=== PATIENT | female | born 1955 | race Caucasian/White ===

== ENCOUNTER 2020-10-04 17:28 | Emergency (ER) | payer BC ==
[2020-10-04] MEDS ORDERED: Labetalol 20 MG/4 ML Syringe IVPUSH ONE ×2 (18:01→18:36)
--- NOTE | 2020-10-04 18:02 | EDM.PDOC ---
ED HPI GENERAL MEDICAL PROBLEM - General Stated Complaint: POST OP ISSUES- CANT TALK Time Seen by Provider: 10/04/20 17:28 Source of Information: Reports: Patient, Family History Limitations: Reports: No Limitations - History of Present Illness INITIAL COMMENTS - FREE TEXT/NARRATIVE: c/o difficulty speaking this AM at [facility], pt has a laser procedure on varicose vein on RLE by Dr Sarah she lay down for a nap at 1p (her last known well) and awake 2h later with difficulty getting out her words and difficulty writing, no other deficits, husbands reports she could express her thoughts clearly and had no memory difficulties, however she had difficulty finding words head CT without contrast neg pt outside the window for thrombolytics d/w Dr Davila, [place] [facility], who recommended ED to ED transfer for brain MRI d/w Dr Lowery at [place] [facility] who accepted pt in transfer pt has had an isolated expressive aphasia that did not improve or get worse while in ED, pt agrees to transfer elevated BP on arrival with SBP 185 which dec'd to 159 after labetalol 20 mg IV, however it then inc'd again to 184/105 at time of transfer and a 2nd bolus of labetalol 20 mg IV ordered along with a labetalol drip Dr Davila wondered whether the language difficulties could be related to the HTN rather than the other way around as it is not clear why pt has a hypertensive urgency, speech however did not improve with lower BP or worsen with higher BP - Related Data Allergies Allergy/AdvReac Type Severity Reaction Status Date / Time lisinopril Allergy Cough Verified 10/04/20 18:11 Penicillins Allergy Other Verified 10/04/20 18:11 Home Meds: Home Meds Aspirin [Halfprin] 81 mg PO DAILY 10/04/20 [History] Dulaglutide [Trulicity] 0.5 ml INJECT FR 10/04/20 [History] Glucosam/Chond/Collagen/Hyalur [Glucosamine Chondroitin] 1 cap PO DAILY 10/04/20 [History] Losartan [Cozaar] 50 mg PO DAILY 10/04/20 [History] atorvaSTATin [Lipitor] 40 mg PO DAILY 10/04/20 [History] glipiZIDE [Glipizide ER] 10 mg PO BID 10/04/20 [History] metFORMIN [Glucophage XR] 500 mg PO BID 10/04/20 [History] ED ROS GENERAL - Review of Systems Review Of Systems: See Below Constitutional: Reports: No Symptoms HEENT: Reports: No Symptoms Respiratory: Reports: No Symptoms Cardiovascular: Reports: No Symptoms Endocrine: Reports: No Symptoms GI/Abdominal: Reports: No Symptoms : Reports: No Symptoms Musculoskeletal: Reports: No Symptoms Skin: Reports: No Symptoms Neurological: Reports: Trouble Speaking, Change in Speech. Denies: Confusion, Dizziness, Headache, Numbness, Paresthesia, Pre-Existing Deficit, Seizure, Syn cope, Tremors, Difficulty Walking, Weakness, Gait Disturbance Psychiatric: Reports: No Symptoms Hematologic/Lymphatic: Reports: No Symptoms Immunologic: Reports: No Symptoms ED EXAM, NEURO - Physical Exam Exam: See Below Exam Limited By: No Limitations General Appearance: Alert, WD/WN, Anxious Eye Exam: Bilateral Eye: EOMI, PERRL Ears: Hearing Grossly Normal Nose: Normal Inspection, Normal Mucosa, No Blood Throat/Mouth: Normal Inspection, Normal Lips, Normal Teeth, Normal Voice, No Airway Compromise Head Exam: Atraumatic, Normocephalic Neck: Normal Inspection, Supple, Non-Tender, Full Range of Motion Respiratory/Chest: No Respiratory Distress, Lungs Clear, Normal Breath Sounds, Chest Non-Tender Cardiovascular: Regular Rate, Rhythm, No Edema, No Gallop, Other (2/6 JESSY at LSB, quiet precordium) GI/Abdominal: Normal Bowel Sounds, Soft, Non-Tender, No Organomegaly Neurological: Alert, Normal Mood/Affect, CN II-XII Intact, No Motor/Sensory Deficits, Oriented x 3, Other (good eye contact, speaks in complete sentences, answers questions appropriately, does work finding for 3-5 seconds, speech understandable, CN 2-12 intact) Back Exam: Normal Inspection. No: CVA Tenderness (R), CVA Tenderness (L) Extremities: Other (RLE wrapped in Christian which was not removed, 1-2+ edema LLE with inc'd adipose tissue) Psychiatric: Anxious Skin Exam: Warm, Intact #1 Interpretation EKG Date: 10/04/20 Time: 17:56 Rhythm: NSR Rate (Beats/Min): 95 Mather: Normal P-Wave: Present QRS: Normal ST-T: Normal QT: Normal Comparison: NA - No Prior EKG Course - Vital Signs Last Recorded V/S: Last Vital Signs Temp 36.8 C 10/04/20 18:13 Pulse 92 10/04/20 18:13 Resp 17 10/04/20 18:13 BP 196/92 H 10/04/20 18:13 Pulse Ox 97 10/04/20 18:13 - Orders/Labs/Meds Orders: Active Orders 24 hr Category Date Time Status EKG Documentation Completion [RC] ASDIRECTED Care 10/04/20 17:40 Ordered Head wo Cont [CT] Stat Exams 10/04/20 17:39 Ordered Labetalol 100 MG in Normal Saline @ 0.5 MG/MIN(200ml) Med 10/04/20 18:45 Ordered Labetalol [Normodyne] 100 mg Sodium Chloride 0.9% [Normal Saline] 80 ml IV TITRATE Sodium Chloride 0.9% [Saline Flush] Med 10/04/20 18:05 Active 10 ml FLUSH ASDIRECTED PRN EKG 12 Lead [EK] Routine Ther 10/04/20 17:40 Ordered Medication Orders Labetalol HCl 100 mg/ Sodium (Chloride) 100 mls @ 30 mls/hr IV TITRATE JONAS; Protocol Last Admin: 10/04/20 19:00 Dose: 0.5 mg/min, 30 mls/hr Documented by: Sodium Chloride (Sodium Chloride 0.9% 10 Ml Syringe) 10 ml FLUSH ASDIRECTED PRN PRN Reason: IV Use Last Admin: 10/04/20 18:05 Dose: 10 ml Documented by: ELAINE Labs: Laboratory Tests 10/04/20 10/04/20 10/04/20 Range/Units 17:45 17:55 17:55 WBC 7.1 (3.0-10.3) x10-3/uL RBC 4.65 (3.60-5.20) x10(6)uL Hgb 14.1 (11.4-15.5) g/dL Hct 42.6 (34.2-48.2) % MCV 91.5 (76.7-100.5) fL MCH 30.4 (23.9-33.9) pg MCHC 33.2 (31.9-34.8) g/dL RDW 13.8 (12.3-16.5) % Plt Count 219 (151-488) x10(3)uL MPV 6.9 L (7.1-12.4) fL Neut % (Auto) 70.3 (30.8-76.2) % Lymph % (Auto) 17.8 L (18.4-52.1) % Benzie % (Auto) 9.3 (4.4-15.7) % Eos % (Auto) 2.0 (0.6-8.1) % Baso % (Auto) 0.6 (0.2-1.5) % Neut # (Auto) 5.0 (1.5-6.3) x10-3/uL Lymph # (Auto) 1.3 (1.0-4.4) x10-3/uL Benzie # (Auto) 0.7 (0.3-1.0) x10-3/uL Eos # (Auto) 0.1 (0.0-0.8) x10-3/uL Baso # (Auto) 0.0 (0.0-0.1) x10-3/uL PT 10.7 (9.0-11.1) sec INR 0.99 L (1.00-1.24) APTT 24.5 (24.4-33.2) SECONDS Sodium (135-145) mmol/L Potassium (3.5-5.3) mmol/L Chloride (100-110) mmol/L Carbon Dioxide (21-32) mmol/L BUN (7-18) mg/dL Creatinine (0.55-1.02) mg/dL Est Cr Clr Drug Dosing Estimated GFR (MDRD) (>60) BUN/Creatinine Ratio (9-20) Glucose (80-116) mg/dL Calcium (8.6-10.2) mg/dL Total Bilirubin (0.1-1.3) mg/dL AST (5-25) IU/L ALT (12-36) U/L Alkaline Phosphatase (56-112) IU/L Troponin I (4.0-60.3) pg/mL Total Protein (6.0-8.0) g/dL Albumin (3.2-4.6) g/dL Globulin g/dL Albumin/Globulin Ratio Urine Color Yellow (YELLOW) Urine Appearance Clear (CLEAR) Urine pH 6.0 (5.0-6.5) Ur Specific Thrall 1.010 (1.010-1.025) Urine Protein Negative (NEGATIVE) mg/dL Urine Glucose (UA) Normal (NORMAL) mg/dL Urine Ketones Negative (NEGATIVE) mg/dL Urine Occult Blood Negative (NEGATIVE) Urine Nitrite Negative (NEGATIVE) Urine Bilirubin Negative (NEGATIVE) Urine Urobilinogen Normal (NEGATIVE) mg/dL Ur Leukocyte Esterase Negative (NEGATIVE) Urine RBC 0-5 (0-5) Urine WBC 0-5 (0-5) Ur Squamous Epith Cells Occasional (NS,R,O) Urine Bacteria Occasional H (NS) 10/04/20 10/04/20 Range/Units 17:55 17:55 WBC (3.0-10.3) x10-3/uL RBC (3.60-5.20) x10(6)uL Hgb (11.4-15.5) g/dL Hct (34.2-48.2) % MCV (76.7-100.5) fL MCH (23.9-33.9) pg MCHC (31.9-34.8) g/dL RDW (12.3-16.5) % Plt Count (151-488) x10(3)uL MPV (7.1-12.4) fL Neut % (Auto) (30.8-76.2) % Lymph % (Auto) (18.4-52.1) % Benzie % (Auto) (4.4-15.7) % Eos % (Auto) (0.6-8.1) % Baso % (Auto) (0.2-1.5) % Neut # (Auto) (1.5-6.3) x10-3/uL Lymph # (Auto) (1.0-4.4) x10-3/uL Benzie # (Auto) (0.3-1.0) x10-3/uL Eos # (Auto) (0.0-0.8) x10-3/uL Baso # (Auto) (0.0-0.1) x10-3/uL PT (9.0-11.1) sec INR (1.00-1.24) APTT (24.4-33.2) SECONDS Sodium 139 (135-145) mmol/L Potassium 3.7 (3.5-5.3) mmol/L Chloride 101 (100-110) mmol/L Carbon Dioxide 26 (21-32) mmol/L BUN 23 H (7-18) mg/dL Creatinine 1.2 H (0.55-1.02) mg/dL Est Cr Clr Drug Dosing TNP Estimated GFR (MDRD) 45 L (>60) BUN/Creatinine Ratio 19.2 (9-20) Glucose 149 H (80-116) mg/dL Calcium 8.5 L (8.6-10.2) mg/dL Total Bilirubin 0.5 (0.1-1.3) mg/dL AST 20 (5-25) IU/L ALT 30 (12-36) U/L Alkaline Phosphatase 70 (56-112) IU/L Troponin I 13.6 (4.0-60.3) pg/mL Total Protein 7.2 (6.0-8.0) g/dL Albumin 3.7 (3.2-4.6) g/dL Globulin 3.5 g/dL Albumin/Globulin Ratio 1.1 Urine Color (YELLOW) Urine Appearance (CLEAR) Urine pH (5.0-6.5) Ur Specific Thrall (1.010-1.025) Urine Protein (NEGATIVE) mg/dL Urine Glucose (UA) (NORMAL) mg/dL Urine Ketones (NEGATIVE) mg/dL Urine Occult Blood (NEGATIVE) Urine Nitrite (NEGATIVE) Urine Bilirubin (NEGATIVE) Urine Urobilinogen (NEGATIVE) mg/dL Ur Leukocyte Esterase (NEGATIVE) Urine RBC (0-5) Urine WBC (0-5) Ur Squamous Epith Cells (NS,R,O) Urine Bacteria (NS) Meds: Medications Generic Name Dose Route Start Last Admin Trade Name Freq PRN Reason Stop Dose Admin Labetalol HCl 100 mg/ Sodium 100 mls @ 30 mls/hr 10/04/20 18:45 10/04/20 19:00 Chloride IV 0.5 mg/min TITRATE JONAS 30 mls/hr Administration Protocol 0.5 MG/MIN Sodium Chloride 10 ml 10/04/20 18:05 10/04/20 18:39 Sodium Chloride 0.9% 10 Ml Syringe FLUSH 10 ml ASDIRECTED PRN Administration IV Use Discontinued Medications Generic Name Dose Route Start Last Admin Trade Name Freq PRN Reason Stop Dose Admin Labetalol HCl 20 mg 10/04/20 18:01 10/04/20 18:10 Labetalol 20 Mg/4 Ml Syringe IVPUSH 10/04/20 18:02 20 mg ONETIME ONE Administration Protocol Labetalol HCl 20 mg 10/04/20 18:36 10/04/20 18:39 Labetalol 20 Mg/4 Ml Syringe IVPUSH 10/04/20 18:37 20 mg ONETIME ONE Administration Protocol - Re-Assessments/Exams Free Text/Narrative Re-Assessment/Exam: 10/04/20 19:24 see HPI for details of MDM pt remains stable, after 2nd labetalol bolus and labetalol drip DBP dec'd from 105 to 82, SBP dec'd from 189 to 155, when it then dec'd to 152, the labetalol drip was dec'd in 1/2 target SBP 160 given hypertensive urgency and need to avoid excessive high or low BPs Departure - Departure Time of Disposition: 18:39 Disposition: DC/Tfer to Acute Hospital 02 Condition: Fair Clinical Impression: Expressive aphasia, Hypertensive urgency - Discharge Information *PRESCRIPTION DRUG MONITORING PROGRAM REVIEWED*: Not Applicable *COPY OF PRESCRIPTION DRUG MONITORING REPORT IN PATIENT GABRIELLA: Not Applicable Referrals: Sylvie Hawkins NP [Primary Care Provider] - Sepsis Event Note (ED) - Focused Exam Vital Signs: Vital Signs Temp Pulse Resp BP Pulse Ox 10/04/20 18:13 36.8 C 92 17 196/92 H 97 - My Orders Last 24 Hours: My Active Orders 10/04/20 17:39 Head wo Cont [CT] Stat 10/04/20 17:40 EKG Documentation Completion [RC] ASDIRECTED EKG 12 Lead [EK] Routine 10/04/20 18:05 Sodium Chloride 0.9% [Saline Flush] 10 ml FLUSH ASDIRECTED PRN 10/04/20 18:45 Labetalol 100 MG in Normal Saline @ 0.5 MG/MIN(200ml) Labetalol [Normodyne] 100 mg Sodium Chloride 0.9% [Normal Saline] 80 ml IV TITRATE - Assessment/Plan Last 24 Hours: My Active Orders 10/04/20 17:39 Head wo Cont [CT] Stat 10/04/20 17:40 EKG Documentation Completion [RC] ASDIRECTED EKG 12 Lead [EK] Routine 10/04/20 18:05 Sodium Chloride 0.9% [Saline Flush] 10 ml FLUSH ASDIRECTED PRN 10/04/20 18:45 Labetalol 100 MG in Normal Saline @ 0.5 MG/MIN(200ml) Labetalol [Normodyne] 100 mg Sodium Chloride 0.9% [Normal Saline] 80 ml IV TITRATE
[2020-10-04] MEDS: Sodium Chloride 0.9% 10 ML Syringe FLUSH PRN ×3 (18:05→18:39)
[2020-10-04] MEDS ORDERED: Labetalol 100 MG in Sodium Chloride 0.9% 80 ML IV SCH (18:45)
== END 2020-10-04 19:42 ==
LOC: FB.ED 17:28
DX: R47.01 Aphasia (principal); I16.0 Hypertensive urgency; Z88.0 Allergy status to penicillin; Z88.8 Allergy status to other drugs, medicaments and biological substances; Z79.82 Long term (current) use of aspirin; Z79.899 Other long term (current) drug therapy
CPT/HCPCS: 36415; 70450; 80053; 81001; 84484; 85025; 85610; 85730; 93005; 99285; J3490

== ENCOUNTER 2021-09-01 16:12 | Emergency (ER) | payer BC ==
[2021-09-01] MEDS ORDERED: LORazepam 2 MG/ML SDV IVPUSH ONE (16:30)
[2021-09-01] MEDS: Sodium Chloride 0.9% 10 ML Syringe FLUSH PRN ×3 (16:47→17:38)
[2021-09-01] MEDS ORDERED: levETIRAcetam 1,000 MG in Sodium Chloride 0.9% 100 ML IV ONE (16:49)
[2021-09-01 16:54] LABS: ESTIMATED GFR 55 mL/min (>60)
[2021-09-01] MEDS ORDERED: Ketorolac 30 MG/ML SDV IVPUSH ONE (17:22)
[2021-09-01] MEDS ORDERED: Acetaminophen 500 MG Tab PO ONE (17:22)
[2021-09-01] MEDS ORDERED: diphenhydrAMINE 50 MG/ML SDV IVPUSH ONE ×2 (18:10→18:23)
[2021-09-01] MEDS ORDERED: Labetalol 20 MG/4 ML Syringe IVPUSH ONE (18:40)
== END 2021-09-01 19:30 | disposition home or self-care (01) ==
LOC: FB.ED 16:12
DX: I10 Essential (primary) hypertension (principal); T50.995A Adverse effect of other drugs, medicaments and biological substances, initial encounter; E78.00 Pure hypercholesterolemia, unspecified; E11.9 Type 2 diabetes mellitus without complications; E66.9 Obesity, unspecified; Z86.73 Personal history of transient ischemic attack (TIA), and cerebral infarction without residual deficits; Z88.0 Allergy status to penicillin; Z79.82 Long term (current) use of aspirin; Z79.899 Other long term (current) drug therapy; Z68.34 Body mass index [BMI] 34.0-34.9, adult
CPT/HCPCS: 36415; 70450; 80048; 81001; 84484; 85027; 96365; 96375; 99283; 99285-25; A9270-GY; J1200; J1885; J1953; J2060; J3490

== ENCOUNTER 2021-10-25 07:37 | Emergency (ER) | payer BC ==
[2021-10-25] MEDS ORDERED: Sodium Chloride 0.9% 1,000 ML IV ONE (08:49)
[2021-10-25] MEDS ORDERED: diphenhydrAMINE 50 MG/ML SDV IVPUSH ONE (08:53)
[2021-10-25 08:59] LABS: ESTIMATED GFR 50 mL/min (>60)
[2021-10-25] MEDS ORDERED: Magnesium Sulfate/Water 50 ML IV ONE (09:00)
[2021-10-25] MEDS ORDERED: LORazepam 2 MG/ML SDV IVPUSH ONE (09:04)
[2021-10-25] MEDS ORDERED: LORazepam 2 MG/ML SDV ONE (09:07)
[2021-10-25] MEDS ORDERED: Morphine 2 MG/ML SYRINGE IVPUSH ONE (09:10)
[2021-10-25] MEDS ORDERED: Gadoteridol 279.3 MG/ML 20 ML SDV IV ONE (10:18)
== END 2021-10-25 12:00 | disposition home or self-care (01) ==
LOC: FB.ED 07:37
DX: G25.3 Myoclonus (principal); E83.42 Hypomagnesemia; E78.00 Pure hypercholesterolemia, unspecified; I10 Essential (primary) hypertension; E11.9 Type 2 diabetes mellitus without complications; E66.9 Obesity, unspecified; Z86.73 Personal history of transient ischemic attack (TIA), and cerebral infarction without residual deficits; Z88.0 Allergy status to penicillin; Z88.8 Allergy status to other drugs, medicaments and biological substances
CPT/HCPCS: 36415; 70544; 70548; 80053; 82550; 83735; 84443; 85025; 85610; 86140; 96374; 96375; 99282; 99284; A9579; J1200; J2060; J2270; J3475; J7030

== ENCOUNTER 2022-09-11 15:57 | Inpatient (IN) | payer BC, MEDICARE ==
[2022-09-11 16:42] LABS: BASE EXCESS VENOUS,POC 0 mmol/L (-2 - 3+); PCO2 VENOUS,POC 63 mmHg (41-51); PH VENOUS,POC 7.27 pH Units (7.32-7.43)
[2022-09-11 16:54] LABS: BLOOD UREA NITROGEN,BUN 42 mg/dL (7-18); BUN/CREATININE RATIO 23.3 (9-20); CARBON DIOXIDE,CO2 30 mmol/L (21-32); CHLORIDE,CL 102 mmol/L (100-110); CREATININE 1.8 mg/dL (0.55-1.02); ESTIMATED GFR 30 mL/min (>60); GLUCOSE RANDOM 143 mg/dL (80-116); POTASSIUM,K 4.5 mmol/L (3.5-5.3); SODIUM,NA 140 mmol/L (135-145)
[2022-09-11] MEDS ORDERED: methylPREDNISolone Sodium Succinate 125 MG/2 ML SDV IVPUSH ONE (16:57)
[2022-09-11] MEDS ORDERED: Albuterol/Ipratropium 3.0-0.5 MG/3 ML Neb Soln NEB ONE ×2 (16:57→18:43)
[2022-09-11 17:00] LABS: A/G RATIO 0.7; ALANINE AMINOTRANSFERASE,ALT 18 U/L (12-36); ALKALINE PHOSPHATASE 70 IU/L (56-112); ASPARTATE AMNIOTRANSFERASE,AST 14 IU/L (5-25); BASOPHILS PERCENT AUTO 0.2 % (0.2-1.5); BILIRUBIN TOTAL 0.5 mg/dL (0.1-1.3); EOSINOPHILS ABSOLUTE AUTO 0.1 x10-3/uL (0.0-0.8); EOSINOPHILS PERCENT AUTO 0.6 % (0.6-8.1); HEMATOCRIT 35.2 % (34.2-48.2); HEMOGLOBIN 11.5 g/dL (11.4-15.5); LYMPHOCYTES ABSOLUTE AUTO 1.2 x10-3/uL (1.0-4.4); LYMPHOCYTES PERCENT AUTO 9.7 % (18.4-52.1); MEAN CORPUSCULAR HEMOGLOBIN 29.5 pg (23.9-33.9); MEAN CORPUSCULAR HGB CONC 32.5 g/dL (31.9-34.8); MEAN CORPUSCULAR VOLUME 90.7 fL (76.7-100.5); MEAN PLATELET VOLUME 7.9 fL (7.1-12.4); MONOCYTES ABSOLUTE AUTO 1.7 x10-3/uL (0.3-1.0); MONOCYTES PERCENT AUTO 13.5 % (4.4-15.7); NEUTROPHILS ABSOLUTE AUTO 9.4 x10-3/uL (1.5-6.3); PLATELET COUNT,PLT 262 x10(3)uL (151-488); PROTEIN TOTAL,TP 7.5 g/dL (6.0-8.0); RED BLOOD CELL COUNT 3.89 x10(6)uL (3.60-5.20); RED CELL DISTRIBUTION WIDTH 14.8 % (12.3-16.5); WHITE BLOOD CELL COUNT,WBC 12.3 x10-3/uL (3.0-10.3)
[2022-09-11 17:04] LABS: D-DIMER QUANTITATIVE 0.76 mg/LFEU (0.0-0.59)
[2022-09-11 17:06] LABS: LACTIC ACID 0.9 mmol/L (0.4-2.0)
[2022-09-11 17:08] LABS: INR 1.03 (1.00-1.24); PROTHROMBIN TIME 10.6 sec (9.0-11.1); PTT,PARTIAL THROMBOPLSTIN TIME 29.2 SECONDS (24.4-33.2)
[2022-09-11 17:10] LABS: TROPONIN I 30.3 pg/mL (4.0-60.3)
[2022-09-11] MEDS: Sodium Chloride 0.9% 1,000 ML IV SCH (18:49)
[2022-09-11] MEDS ORDERED: Sennosides/Docusate Sodium 50-8.6 MG Tab PO PRN (20:17)
[2022-09-11] MEDS ORDERED: Albuterol 0.083% 2.5 MG/3 ML Neb Soln NEB PRN (20:17)
[2022-09-11] MEDS ORDERED: Ondansetron 4 MG/2 ML SDV IV PRN (20:17)
[2022-09-11] MEDS: cefTRIAXone 1 GM Vial IVPUSH SCH (21:39)
[2022-09-11] MEDS: Azithromycin 500 MG in Sodium Chloride 0.9% 250 ML IV SCH (21:48)
[2022-09-11] MEDS: Enoxaparin 40 MG/0.4 ML Syringe SUBCUT SCH (21:48)
[2022-09-11] MEDS: Albuterol/Ipratropium 3.0-0.5 MG/3 ML Neb Soln INH SCH (21:49)
[2022-09-12] MEDS: Albuterol/Ipratropium 3.0-0.5 MG/3 ML Neb Soln INH SCH ×4 (03:11→20:26)
[2022-09-12 06:36] LABS: HEMOGLOBIN 11.7 g/dL (11.4-15.5); MEAN CORPUSCULAR HEMOGLOBIN 30.1 pg (23.9-33.9); MEAN CORPUSCULAR HGB CONC 32.5 g/dL (31.9-34.8); MEAN CORPUSCULAR VOLUME 92.7 fL (76.7-100.5); MEAN PLATELET VOLUME 7.6 fL (7.1-12.4); PLATELET COUNT,PLT 242 x10(3)uL (151-488); RED BLOOD CELL COUNT 3.89 x10(6)uL (3.60-5.20); RED CELL DISTRIBUTION WIDTH 14.7 % (12.3-16.5); WHITE BLOOD CELL COUNT,WBC 10.1 x10-3/uL (3.0-10.3)
[2022-09-12] MEDS: Sodium Chloride 0.9% 1,000 ML IV SCH ×2 (06:41→18:05)
[2022-09-12 06:47] LABS: BAND PERCENT MAN 1 % (0-6); LYMPHOCYTES PERCENT MAN 7 % (13-37); SEG NEUTROPHILS PERCENT MAN 90 % (46-82)
[2022-09-12 06:48] LABS: MONOCYTES PERCENT MAN 2 % (4-12)
[2022-09-12 06:51] LABS: A/G RATIO 0.6; ALANINE AMINOTRANSFERASE,ALT 22 U/L (12-36); ALBUMIN 2.8 g/dL (3.2-4.6); ALKALINE PHOSPHATASE 70 IU/L (56-112); ASPARTATE AMNIOTRANSFERASE,AST 16 IU/L (5-25); BILIRUBIN TOTAL 0.1 mg/dL (0.1-1.3); BLOOD UREA NITROGEN,BUN 51 mg/dL (7-18); BUN/CREATININE RATIO 24.3 (9-20); CALCIUM 8.6 mg/dL (8.6-10.2); CARBON DIOXIDE,CO2 29 mmol/L (21-32); CHLORIDE,CL 104 mmol/L (100-110); EST CRCL DRUG DOSING (CG) 25.86 mL/min; ESTIMATED GFR 25 mL/min (>60); GLUCOSE RANDOM 216 mg/dL (80-116); POTASSIUM,K 5.8 mmol/L (3.5-5.3); PROTEIN TOTAL,TP 7.5 g/dL (6.0-8.0); SODIUM,NA 140 mmol/L (135-145)
[2022-09-12 06:54] LABS: CREATININE 2.1 mg/dL (0.55-1.02)
[2022-09-12] MEDS ORDERED: predniSONE 20 MG Tab PO SCH (08:00)
[2022-09-12 10:07] LABS: ALBUMIN 2.7 g/dL (3.2-4.6); BLOOD UREA NITROGEN,BUN 54 mg/dL (7-18); CALCIUM 8.6 mg/dL (8.6-10.2); CARBON DIOXIDE,CO2 29 mmol/L (21-32); CHLORIDE,CL 104 mmol/L (100-110); EST CRCL DRUG DOSING (CG) 27.16 mL/min; ESTIMATED GFR 27 mL/min (>60); GLUCOSE RANDOM 211 mg/dL (80-116); PHOSPHORUS 4.5 mg/dL (2.6-4.6); POTASSIUM,K 5.1 mmol/L (3.5-5.3); SODIUM,NA 139 mmol/L (135-145)
[2022-09-12] MEDS ORDERED: Polyethylene Glycol 3350 Powder 17 GM Packet PO PRN (10:25)
[2022-09-12] MEDS ORDERED: Cyclobenzaprine 10 MG Tab PO PRN (10:25)
[2022-09-12] MEDS ORDERED: amLODIPine 5 MG Tab PO SCH (10:30)
[2022-09-12] MEDS ORDERED: Sennosides 8.6 MG Tab PO SCH (10:30)
[2022-09-12] MEDS ORDERED: 50% Dextrose in Water 50 ML Syringe IVPUSH PRN (10:33)
[2022-09-12] MEDS ORDERED: Glucagon,Human Recombinant 1 MG Vial IM PRN (10:33)
[2022-09-12] MEDS ORDERED: Insulin Lispro 100 Unit/ML 3 ML KwikPen SUBCUT ONE (11:25)
[2022-09-12] MEDS: atorvaSTATin 40 MG Tab PO SCH (11:26)
[2022-09-12] MEDS: Aspirin 81 MG Tab.EC PO SCH (11:26)
[2022-09-12] MEDS: hydrALAZINE 10 MG Tab PO SCH ×2 (11:27→20:22)
[2022-09-12] MEDS: Carvedilol 25 MG Tab PO SCH ×2 (11:27→20:21)
[2022-09-12] MEDS: levETIRAcetam 500 MG Tab PO SCH ×2 (11:27→20:22)
[2022-09-12] MEDS: Escitalopram 10 MG Tab PO SCH (11:28)
[2022-09-12] MEDS: predniSONE 20 MG Tab PO SCH (11:36)
[2022-09-12] MEDS: Insulin Lispro 100 Unit/ML 3 ML KwikPen SUBCUT SCH ×2 (11:39→16:59)
[2022-09-12] MEDS: glipiZIDE 10 MG Tab.ER PO SCH ×2 (11:43→16:59)
[2022-09-12] MEDS: cefTRIAXone 1 GM Vial IVPUSH SCH (20:31)
[2022-09-12] MEDS: Azithromycin 500 MG in Sodium Chloride 0.9% 250 ML IV SCH (20:36)
[2022-09-12] MEDS: Enoxaparin 40 MG/0.4 ML Syringe SUBCUT SCH (20:47)
[2022-09-12] MEDS ORDERED: Benztropine 1 MG Tab PO SCH (21:00)
[2022-09-13] MEDS: Albuterol/Ipratropium 3.0-0.5 MG/3 ML Neb Soln INH SCH ×4 (03:03→20:27)
[2022-09-13] MEDS: Sodium Chloride 0.9% 1,000 ML IV SCH (05:02)
[2022-09-13 06:46] LABS: BASOPHILS PERCENT AUTO 0.1 % (0.2-1.5); EOSINOPHILS PERCENT AUTO 0.1 % (0.6-8.1); HEMATOCRIT 32.6 % (34.2-48.2); HEMOGLOBIN 10.7 g/dL (11.4-15.5); LYMPHOCYTES ABSOLUTE AUTO 0.9 x10-3/uL (1.0-4.4); LYMPHOCYTES PERCENT AUTO 8.6 % (18.4-52.1); MEAN CORPUSCULAR HEMOGLOBIN 29.9 pg (23.9-33.9); MEAN CORPUSCULAR HGB CONC 32.7 g/dL (31.9-34.8); MEAN CORPUSCULAR VOLUME 91.4 fL (76.7-100.5); MEAN PLATELET VOLUME 7.7 fL (7.1-12.4); MONOCYTES ABSOLUTE AUTO 1.1 x10-3/uL (0.3-1.0); NEUTROPHILS ABSOLUTE AUTO 8.3 x10-3/uL (1.5-6.3); NEUTROPHILS PERCENT AUTO 80.2 % (30.8-76.2); PLATELET COUNT,PLT 252 x10(3)uL (151-488); RED BLOOD CELL COUNT 3.56 x10(6)uL (3.60-5.20); RED CELL DISTRIBUTION WIDTH 14.7 % (12.3-16.5); WHITE BLOOD CELL COUNT,WBC 10.4 x10-3/uL (3.0-10.3)
[2022-09-13 06:48] LABS: BLOOD UREA NITROGEN,BUN 50 mg/dL (7-18); BUN/CREATININE RATIO 35.7 (9-20); CALCIUM 8.5 mg/dL (8.6-10.2); CARBON DIOXIDE,CO2 29 mmol/L (21-32); CHLORIDE,CL 108 mmol/L (100-110); CREATININE 1.4 mg/dL (0.55-1.02); ESTIMATED GFR 41 mL/min (>60); GLUCOSE RANDOM 110 mg/dL (80-116); POTASSIUM,K 4.6 mmol/L (3.5-5.3); SODIUM,NA 143 mmol/L (135-145)
[2022-09-13] MEDS: atorvaSTATin 40 MG Tab PO SCH (08:50)
[2022-09-13] MEDS: Escitalopram 10 MG Tab PO SCH (08:50)
[2022-09-13] MEDS: Aspirin 81 MG Tab.EC PO SCH (08:51)
[2022-09-13] MEDS: predniSONE 20 MG Tab PO SCH (08:51)
[2022-09-13] MEDS: hydrALAZINE 10 MG Tab PO SCH ×2 (08:52→20:44)
[2022-09-13] MEDS: Carvedilol 25 MG Tab PO SCH ×2 (08:52→20:43)
[2022-09-13] MEDS: levETIRAcetam 500 MG Tab PO SCH ×2 (08:52→20:43)
[2022-09-13] MEDS: glipiZIDE 10 MG Tab.ER PO SCH ×2 (09:01→17:36)
[2022-09-13] MEDS: Insulin Lispro 100 Unit/ML 3 ML KwikPen SUBCUT SCH ×3 (09:02→17:35)
[2022-09-13] MEDS ORDERED: Iopamidol 755 Mg/ML 100 ML Bottle IV ONE (10:36)
[2022-09-13] MEDS: guaiFENesin 600 MG Tab.ER PO SCH ×2 (10:50→20:44)
[2022-09-13] MEDS: cefTRIAXone 1 GM Vial IVPUSH SCH (20:29)
[2022-09-13] MEDS: Sodium Chloride 0.9% 10 ML Syringe FLUSH PRN ×2 (20:33→21:44)
[2022-09-13] MEDS: Azithromycin 500 MG in Sodium Chloride 0.9% 250 ML IV SCH (20:36)
[2022-09-13] MEDS: Enoxaparin 40 MG/0.4 ML Syringe SUBCUT SCH (20:38)
[2022-09-13] MEDS ORDERED: Acetaminophen 325 MG Tab PO PRN ×2 (21:45→21:47)
[2022-09-14] MEDS: Albuterol/Ipratropium 3.0-0.5 MG/3 ML Neb Soln INH SCH ×3 (02:29→14:19)
[2022-09-14 06:41] LABS: BLOOD UREA NITROGEN,BUN 40 mg/dL (7-18); BUN/CREATININE RATIO 33.3 (9-20); CALCIUM 8.6 mg/dL (8.6-10.2); CARBON DIOXIDE,CO2 30 mmol/L (21-32); CHLORIDE,CL 109 mmol/L (100-110); CREATININE 1.2 mg/dL (0.55-1.02); EST CRCL DRUG DOSING (CG) 45.26 mL/min; ESTIMATED GFR 49 mL/min (>60); GLUCOSE RANDOM 78 mg/dL (80-116); POTASSIUM,K 4.2 mmol/L (3.5-5.3); SODIUM,NA 144 mmol/L (135-145)
[2022-09-14] MEDS: Insulin Lispro 100 Unit/ML 3 ML KwikPen SUBCUT SCH ×2 (08:30→12:22)
[2022-09-14] MEDS: glipiZIDE 10 MG Tab.ER PO SCH (08:32)
[2022-09-14] MEDS: hydrALAZINE 10 MG Tab PO SCH (08:32)
[2022-09-14] MEDS: Escitalopram 10 MG Tab PO SCH (08:32)
[2022-09-14] MEDS: levETIRAcetam 500 MG Tab PO SCH (08:32)
[2022-09-14] MEDS: Aspirin 81 MG Tab.EC PO SCH (08:32)
[2022-09-14] MEDS: guaiFENesin 600 MG Tab.ER PO SCH (08:32)
[2022-09-14] MEDS: atorvaSTATin 40 MG Tab PO SCH (08:32)
[2022-09-14] MEDS: Carvedilol 25 MG Tab PO SCH (08:33)
[2022-09-14] MEDS ORDERED: Cefdinir 300 MG Cap PO ONE (10:21)
== END 2022-09-14 15:30 | disposition home or self-care (01) | DRG 137 ==
LOC: FB.ED 15:57 → FB.MS 20:18
PROVIDERS: ADMIT Emergency Medicine; ATTEND Student in an Organized Health Care Education/Training Program
DX: J69.0 Pneumonitis due to inhalation of food and vomit (principal); N17.9 Acute kidney failure, unspecified; E87.5 Hyperkalemia; E11.9 Type 2 diabetes mellitus without complications; E66.9 Obesity, unspecified; E86.0 Dehydration; I11.0 Hypertensive heart disease with heart failure; I50.9 Heart failure, unspecified; E78.00 Pure hypercholesterolemia, unspecified; Z96.659 Presence of unspecified artificial knee joint; D64.9 Anemia, unspecified; Z86.73 Personal history of transient ischemic attack (TIA), and cerebral infarction without residual deficits; Z98.890 Other specified postprocedural states; Z68.37 Body mass index [BMI] 37.0-37.9, adult; Z79.82 Long term (current) use of aspirin; Z79.84 Long term (current) use of oral hypoglycemic drugs; Z79.899 Other long term (current) drug therapy; Z86.718 Personal history of other venous thrombosis and embolism; Z88.0 Allergy status to penicillin; Z88.8 Allergy status to other drugs, medicaments and biological substances
CPT/HCPCS: 36415; 71045; 71275; 80048; 80053; 80069; 82947; 83605; 83880; 84484; 85025; 85379; 85610; 85730; 93005; 93010; 94640; 96361; 96374; 99223; 99233; 99239; 99285; 99285-25; A9270-GY; J0456; J0696; J1650; J1815; J2930; J3490; J7030; J7050; J7512; J7620; Q9967; U0002

== ENCOUNTER 2022-09-19 11:14 | Inpatient (IN) | payer BC, MEDICARE ==
[2022-09-19] MEDS ORDERED: Azithromycin 500 MG in Sodium Chloride 0.9% 250 ML IV ONE ×2 (16:47→18:00)
[2022-09-19] MEDS ORDERED: Albuterol/Ipratropium 3.0-0.5 MG/3 ML Neb Soln NEB PRN (16:47)
[2022-09-19] MEDS ORDERED: Ondansetron 4 MG Tab.DIS PO PRN (16:47)
[2022-09-19] MEDS ORDERED: cefTRIAXone 1 GM in Sodium Chloride 0.9% 50 ML IV SCH (17:00)
[2022-09-19 17:24] LABS: BASOPHILS PERCENT AUTO 0.4 % (0.2-1.5); EOSINOPHILS ABSOLUTE AUTO 0.3 x10-3/uL (0.0-0.8); EOSINOPHILS PERCENT AUTO 2.9 % (0.6-8.1); HEMATOCRIT 35.7 % (34.2-48.2); HEMOGLOBIN 11.4 g/dL (11.4-15.5); LYMPHOCYTES ABSOLUTE AUTO 1.3 x10-3/uL (1.0-4.4); LYMPHOCYTES PERCENT AUTO 12.6 % (18.4-52.1); MEAN CORPUSCULAR HEMOGLOBIN 29.5 pg (23.9-33.9); MEAN PLATELET VOLUME 7.4 fL (7.1-12.4); MONOCYTES ABSOLUTE AUTO 0.7 x10-3/uL (0.3-1.0); MONOCYTES PERCENT AUTO 7.4 % (4.4-15.7); NEUTROPHILS ABSOLUTE AUTO 7.7 x10-3/uL (1.5-6.3); NEUTROPHILS PERCENT AUTO 76.7 % (30.8-76.2); PLATELET COUNT,PLT 402 x10(3)uL (151-488); RED BLOOD CELL COUNT 3.88 x10(6)uL (3.60-5.20); RED CELL DISTRIBUTION WIDTH 14.5 % (12.3-16.5); WHITE BLOOD CELL COUNT,WBC 10.1 x10-3/uL (3.0-10.3)
[2022-09-19 17:33] LABS: A/G RATIO 0.6; ALANINE AMINOTRANSFERASE,ALT 22 U/L (12-36); ALBUMIN 2.8 g/dL (3.2-4.6); ALKALINE PHOSPHATASE 58 IU/L (56-112); ASPARTATE AMNIOTRANSFERASE,AST 16 IU/L (5-25); BILIRUBIN TOTAL 0.3 mg/dL (0.1-1.3); BLOOD UREA NITROGEN,BUN 16 mg/dL (7-18); BUN/CREATININE RATIO 14.5 (9-20); CARBON DIOXIDE,CO2 34 mmol/L (21-32); CHLORIDE,CL 103 mmol/L (100-110); CREATININE 1.1 mg/dL (0.55-1.02); ESTIMATED GFR 55 mL/min (>60); GLUCOSE RANDOM 86 mg/dL (80-116); POTASSIUM,K 4.2 mmol/L (3.5-5.3); PROTEIN TOTAL,TP 7.3 g/dL (6.0-8.0); SODIUM,NA 142 mmol/L (135-145)
[2022-09-19 17:34] LABS: EST CRCL DRUG DOSING (CG) 49.38 mL/min
[2022-09-19] MEDS: Sodium Chloride 0.9% 10 ML Syringe FLUSH PRN ×4 (18:20→20:12)
[2022-09-19] MEDS ORDERED: Furosemide 40 MG/4 ML VIAL IVPUSH ONE (18:28)
[2022-09-19] MEDS: cefTRIAXone 1 GM Vial IVPUSH SCH (18:55)
[2022-09-19 19:21] LABS: APPEARANCE,URINE CLEAR (CLEAR); BILIRUBIN,URINE NEGATIVE (NEGATIVE); COLOR,URINE YELLOW (YELLOW); GLUCOSE,URINE NORMAL (NORMAL); KETONES,URINE NEGATIVE (NEGATIVE); LEUKOCYTE ESTERASE,URINE NEGATIVE (NEGATIVE); NITRITE,URINE NEGATIVE (NEGATIVE); OCCULT BLOOD,URINE NEGATIVE (NEGATIVE); PROTEIN,URINE NEGATIVE (NEGATIVE); UROBILINOGEN,URINE NORMAL (NEGATIVE)
[2022-09-19 19:22] LABS: BACTERIA,URINE FEW (NS); RBC,URINE 0-5 (0-5); SQUAMOUS EPITHELIAL CELLS,UR FEW (NS,R,O); WBC,URINE 0-5 (0-5)
[2022-09-19] MEDS: Enoxaparin 40 MG/0.4 ML Syringe SUBCUT SCH (20:59)
[2022-09-19] MEDS: CARVEDILOL 25 MG PO SCH (21:00)
[2022-09-19] MEDS: hydrALAZINE 10 MG Tab PO SCH (21:00)
[2022-09-19] MEDS: LEVETIRACETAM 500 MG PO SCH (21:01)
[2022-09-20] MEDS: CARVEDILOL 25 MG PO SCH (08:45)
[2022-09-20] MEDS: Azithromycin 250 MG Tab PO SCH (08:45)
[2022-09-20] MEDS: hydrALAZINE 10 MG Tab PO SCH ×2 (08:45→20:04)
[2022-09-20] MEDS: LEVETIRACETAM 500 MG PO SCH (08:46)
[2022-09-20] MEDS: Furosemide 20 MG Tab PO SCH (09:53)
[2022-09-20] MEDS ORDERED: levETIRAcetam 500 MG Tab PO SCH (16:32)
[2022-09-20] MEDS ORDERED: Carvedilol 25 MG Tab PO SCH (16:45)
[2022-09-20] MEDS: Aspirin 81 MG Tab.EC PO SCH (17:43)
[2022-09-20] MEDS: atorvaSTATin 40 MG Tab PO SCH (17:44)
[2022-09-20] MEDS: Carvedilol 25 MG Tab PO SCH (17:44)
[2022-09-20] MEDS: cefTRIAXone 1 GM Vial IVPUSH SCH (17:44)
[2022-09-20] MEDS: Escitalopram 10 MG Tab PO SCH (17:44)
[2022-09-20] MEDS: Sodium Chloride 0.9% 10 ML Syringe FLUSH PRN (17:45)
[2022-09-20] MEDS: Enoxaparin 40 MG/0.4 ML Syringe SUBCUT SCH (20:04)
[2022-09-20] MEDS: metFORMIN 500 MG Tab.ER PO SCH (20:04)
[2022-09-20] MEDS: glipiZIDE 10 MG Tab.ER PO SCH (20:05)
[2022-09-20] MEDS: levETIRAcetam 500 MG Tab PO SCH (20:06)
[2022-09-20] MEDS ORDERED: hydrALAZINE 10 MG Tab PO SCH (21:00)
[2022-09-21] MEDS: Azithromycin 250 MG Tab PO SCH (08:26)
[2022-09-21] MEDS: glipiZIDE 10 MG Tab.ER PO SCH ×2 (08:26→20:39)
[2022-09-21] MEDS: metFORMIN 500 MG Tab.ER PO SCH ×2 (08:26→20:39)
[2022-09-21] MEDS: Furosemide 20 MG Tab PO SCH (08:26)
[2022-09-21] MEDS: hydrALAZINE 10 MG Tab PO SCH ×2 (08:27→20:10)
[2022-09-21] MEDS: Carvedilol 25 MG Tab PO SCH ×3 (08:28→17:03)
[2022-09-21] MEDS: Losartan 100 MG Tab PO SCH (08:28)
[2022-09-21] MEDS: Aspirin 81 MG Tab.EC PO SCH (08:29)
[2022-09-21] MEDS: levETIRAcetam 500 MG Tab PO SCH ×2 (08:29→20:09)
[2022-09-21] MEDS: Escitalopram 10 MG Tab PO SCH (08:29)
[2022-09-21] MEDS: atorvaSTATin 40 MG Tab PO SCH (08:29)
[2022-09-21] MEDS ORDERED: LORazepam 2 MG/ML SDV IVPUSH ONE ×2 (09:46→10:54)
[2022-09-21] MEDS: Sodium Chloride 0.9% 10 ML Syringe FLUSH PRN ×2 (10:02→11:15)
[2022-09-21] MEDS ORDERED: levETIRAcetam 500 MG Tab PO ONE (10:53)
[2022-09-21] MEDS ORDERED: Acetaminophen 325 MG Tab PO PRN (14:48)
[2022-09-21 17:36] LABS: BASOPHILS PERCENT AUTO 0.2 % (0.2-1.5); EOSINOPHILS ABSOLUTE AUTO 0.1 x10-3/uL (0.0-0.8); EOSINOPHILS PERCENT AUTO 1.1 % (0.6-8.1); HEMATOCRIT 40.5 % (34.2-48.2); HEMOGLOBIN 13.1 g/dL (11.4-15.5); LYMPHOCYTES ABSOLUTE AUTO 0.7 x10-3/uL (1.0-4.4); LYMPHOCYTES PERCENT AUTO 5.2 % (18.4-52.1); MEAN CORPUSCULAR HEMOGLOBIN 29.3 pg (23.9-33.9); MEAN CORPUSCULAR HGB CONC 32.3 g/dL (31.9-34.8); MEAN CORPUSCULAR VOLUME 90.6 fL (76.7-100.5); MEAN PLATELET VOLUME 7.1 fL (7.1-12.4); MONOCYTES ABSOLUTE AUTO 0.6 x10-3/uL (0.3-1.0); MONOCYTES PERCENT AUTO 4.4 % (4.4-15.7); NEUTROPHILS ABSOLUTE AUTO 11.3 x10-3/uL (1.5-6.3); NEUTROPHILS PERCENT AUTO 89.1 % (30.8-76.2); PLATELET COUNT,PLT 490 x10(3)uL (151-488); RED BLOOD CELL COUNT 4.47 x10(6)uL (3.60-5.20); RED CELL DISTRIBUTION WIDTH 14.8 % (12.3-16.5); WHITE BLOOD CELL COUNT,WBC 12.6 x10-3/uL (3.0-10.3)
[2022-09-21 17:49] LABS: A/G RATIO 0.8; ALANINE AMINOTRANSFERASE,ALT 24 U/L (12-36); ALBUMIN 3.6 g/dL (3.2-4.6); ALKALINE PHOSPHATASE 73 IU/L (56-112); ASPARTATE AMNIOTRANSFERASE,AST 19 IU/L (5-25); BILIRUBIN TOTAL 0.5 mg/dL (0.1-1.3); BLOOD UREA NITROGEN,BUN 12 mg/dL (7-18); CALCIUM 9.5 mg/dL (8.6-10.2); CHLORIDE,CL 94 mmol/L (100-110); CREATININE 1.2 mg/dL (0.55-1.02); EST CRCL DRUG DOSING (CG) 45.26 mL/min; ESTIMATED GFR 49 mL/min (>60); GLUCOSE RANDOM 170 mg/dL (80-116); POTASSIUM,K 4.1 mmol/L (3.5-5.3); PROTEIN TOTAL,TP 8.4 g/dL (6.0-8.0); SODIUM,NA 139 mmol/L (135-145)
[2022-09-21 17:53] LABS: CARBON DIOXIDE,CO2 40 mmol/L (21-32)
[2022-09-21] MEDS: cefTRIAXone 1 GM Vial IVPUSH SCH (18:19)
[2022-09-21 18:58] LABS: BASE EXCESS ARTERIAL,POC 15 mmol/L (-2 - 3+); HCO3 ARTERIAL,POC 42 mmol/L (21-28); O2 SATURATION ARTERIAL,POC 87.5 % (94-98); PO2 ARTERIAL,POC 55 mmHg (83-108)
[2022-09-21] MEDS ORDERED: Magnesium Sulfate/Water 2 GM in Premix Bag 1 BAG IV ONE (19:11)
[2022-09-21] MEDS: Enoxaparin 40 MG/0.4 ML Syringe SUBCUT SCH (20:08)
[2022-09-22] MEDS: Sodium Chloride 0.9% 10 ML Syringe FLUSH PRN ×2 (01:25→20:42)
[2022-09-22] MEDS: levETIRAcetam 500 MG Tab PO SCH ×2 (08:08→19:31)
[2022-09-22] MEDS: glipiZIDE 10 MG Tab.ER PO SCH ×2 (08:08→20:33)
[2022-09-22] MEDS: metFORMIN 500 MG Tab.ER PO SCH ×2 (08:08→20:33)
[2022-09-22] MEDS: Azithromycin 250 MG Tab PO SCH (08:09)
[2022-09-22] MEDS: Furosemide 20 MG Tab PO SCH (08:09)
[2022-09-22] MEDS: Escitalopram 10 MG Tab PO SCH (08:09)
[2022-09-22] MEDS: Carvedilol 25 MG Tab PO SCH ×2 (09:27→17:47)
[2022-09-22] MEDS: atorvaSTATin 40 MG Tab PO SCH (09:28)
[2022-09-22] MEDS: Aspirin 81 MG Tab.EC PO SCH (09:28)
[2022-09-22] MEDS: cefOXitin 1 GM Vial IVPUSH SCH ×3 (09:42→20:38)
[2022-09-22] MEDS: Losartan 100 MG Tab PO SCH (10:37)
[2022-09-22] MEDS: hydrALAZINE 10 MG Tab PO SCH ×2 (10:37→20:33)
[2022-09-22] MEDS ORDERED: Baclofen 10 MG Tab PO PRN (14:46)
[2022-09-22] MEDS: Enoxaparin 40 MG/0.4 ML Syringe SUBCUT SCH (20:33)
[2022-09-23] MEDS: cefOXitin 1 GM Vial IVPUSH SCH ×4 (03:02→20:43)
[2022-09-23] MEDS: Sodium Chloride 0.9% 10 ML Syringe FLUSH PRN ×2 (03:07→20:46)
[2022-09-23 06:51] LABS: BASOPHILS PERCENT AUTO 0.4 % (0.2-1.5); EOSINOPHILS ABSOLUTE AUTO 0.2 x10-3/uL (0.0-0.8); EOSINOPHILS PERCENT AUTO 2.6 % (0.6-8.1); HEMATOCRIT 35.6 % (34.2-48.2); HEMOGLOBIN 11.5 g/dL (11.4-15.5); LYMPHOCYTES ABSOLUTE AUTO 1.2 x10-3/uL (1.0-4.4); LYMPHOCYTES PERCENT AUTO 14.3 % (18.4-52.1); MEAN CORPUSCULAR HEMOGLOBIN 29.1 pg (23.9-33.9); MEAN CORPUSCULAR HGB CONC 32.2 g/dL (31.9-34.8); MEAN CORPUSCULAR VOLUME 90.3 fL (76.7-100.5); MONOCYTES ABSOLUTE AUTO 0.9 x10-3/uL (0.3-1.0); MONOCYTES PERCENT AUTO 10.3 % (4.4-15.7); NEUTROPHILS ABSOLUTE AUTO 6.1 x10-3/uL (1.5-6.3); NEUTROPHILS PERCENT AUTO 72.4 % (30.8-76.2); PLATELET COUNT,PLT 436 x10(3)uL (151-488); RED BLOOD CELL COUNT 3.94 x10(6)uL (3.60-5.20); RED CELL DISTRIBUTION WIDTH 14.5 % (12.3-16.5); WHITE BLOOD CELL COUNT,WBC 8.4 x10-3/uL (3.0-10.3)
[2022-09-23 06:58] LABS: BLOOD UREA NITROGEN,BUN 13 mg/dL (7-18); BUN/CREATININE RATIO 11.8 (9-20); CALCIUM 8.5 mg/dL (8.6-10.2); CHLORIDE,CL 98 mmol/L (100-110); CREATININE 1.1 mg/dL (0.55-1.02); EST CRCL DRUG DOSING (CG) 49.38 mL/min; ESTIMATED GFR 55 mL/min (>60); GLUCOSE RANDOM 70 mg/dL (80-116); POTASSIUM,K 3.8 mmol/L (3.5-5.3); SODIUM,NA 141 mmol/L (135-145)
[2022-09-23 07:01] LABS: CARBON DIOXIDE,CO2 42 mmol/L (21-32)
[2022-09-23] MEDS: levETIRAcetam 500 MG Tab PO SCH ×2 (07:34→18:41)
[2022-09-23] MEDS: Carvedilol 25 MG Tab PO SCH ×2 (07:55→18:41)
[2022-09-23] MEDS: atorvaSTATin 40 MG Tab PO SCH (08:00)
[2022-09-23] MEDS: metFORMIN 500 MG Tab.ER PO SCH ×2 (08:00→20:40)
[2022-09-23] MEDS: Azithromycin 250 MG Tab PO SCH (08:00)
[2022-09-23] MEDS: Escitalopram 10 MG Tab PO SCH (08:00)
[2022-09-23] MEDS: Losartan 100 MG Tab PO SCH (08:00)
[2022-09-23] MEDS: Furosemide 20 MG Tab PO SCH (08:01)
[2022-09-23] MEDS: Aspirin 81 MG Tab.EC PO SCH (08:01)
[2022-09-23] MEDS: glipiZIDE 10 MG Tab.ER PO SCH ×2 (08:01→20:40)
[2022-09-23] MEDS: hydrALAZINE 10 MG Tab PO SCH ×2 (08:01→20:39)
[2022-09-23] MEDS: Enoxaparin 40 MG/0.4 ML Syringe SUBCUT SCH (20:39)
[2022-09-24] MEDS: cefOXitin 1 GM Vial IVPUSH SCH ×4 (03:02→20:31)
[2022-09-24] MEDS: Sodium Chloride 0.9% 10 ML Syringe FLUSH PRN ×3 (03:15→08:34)
[2022-09-24 06:44] LABS: BASE EXCESS VENOUS,POC 12 mmol/L (-2 - 3+); PCO2 VENOUS,POC 60 mmHg (41-51); PH VENOUS,POC 7.41 pH Units (7.32-7.43)
[2022-09-24 06:49] LABS: BASOPHILS PERCENT AUTO 0.6 % (0.2-1.5); EOSINOPHILS ABSOLUTE AUTO 0.3 x10-3/uL (0.0-0.8); HEMATOCRIT 34.6 % (34.2-48.2); HEMOGLOBIN 11.3 g/dL (11.4-15.5); LYMPHOCYTES ABSOLUTE AUTO 1.3 x10-3/uL (1.0-4.4); LYMPHOCYTES PERCENT AUTO 15.1 % (18.4-52.1); MEAN CORPUSCULAR HEMOGLOBIN 29.6 pg (23.9-33.9); MEAN CORPUSCULAR HGB CONC 32.7 g/dL (31.9-34.8); MEAN CORPUSCULAR VOLUME 90.5 fL (76.7-100.5); MEAN PLATELET VOLUME 7.1 fL (7.1-12.4); MONOCYTES ABSOLUTE AUTO 0.9 x10-3/uL (0.3-1.0); MONOCYTES PERCENT AUTO 10.6 % (4.4-15.7); NEUTROPHILS ABSOLUTE AUTO 6.2 x10-3/uL (1.5-6.3); NEUTROPHILS PERCENT AUTO 70.7 % (30.8-76.2); PLATELET COUNT,PLT 435 x10(3)uL (151-488); RED BLOOD CELL COUNT 3.83 x10(6)uL (3.60-5.20); RED CELL DISTRIBUTION WIDTH 14.4 % (12.3-16.5); WHITE BLOOD CELL COUNT,WBC 8.7 x10-3/uL (3.0-10.3)
[2022-09-24 06:54] LABS: BLOOD UREA NITROGEN,BUN 22 mg/dL (7-18); BUN/CREATININE RATIO 16.9 (9-20); CALCIUM 8.4 mg/dL (8.6-10.2); CARBON DIOXIDE,CO2 39 mmol/L (21-32); CHLORIDE,CL 99 mmol/L (100-110); CREATININE 1.3 mg/dL (0.55-1.02); EST CRCL DRUG DOSING (CG) 41.78 mL/min; ESTIMATED GFR 45 mL/min (>60); GLUCOSE RANDOM 65 mg/dL (80-116); POTASSIUM,K 4.3 mmol/L (3.5-5.3); SODIUM,NA 141 mmol/L (135-145)
[2022-09-24] MEDS: levETIRAcetam 500 MG Tab PO SCH ×2 (06:58→19:25)
[2022-09-24] MEDS: hydrALAZINE 10 MG Tab PO SCH ×2 (08:16→20:25)
[2022-09-24] MEDS: Carvedilol 25 MG Tab PO SCH ×2 (08:16→17:29)
[2022-09-24] MEDS: metFORMIN 500 MG Tab.ER PO SCH ×2 (08:18→20:26)
[2022-09-24] MEDS: glipiZIDE 10 MG Tab.ER PO SCH (08:18)
[2022-09-24] MEDS: Losartan 100 MG Tab PO SCH (08:18)
[2022-09-24] MEDS: Furosemide 20 MG Tab PO SCH (08:19)
[2022-09-24] MEDS: Escitalopram 10 MG Tab PO SCH (08:19)
[2022-09-24] MEDS: atorvaSTATin 40 MG Tab PO SCH (08:19)
[2022-09-24] MEDS: Aspirin 81 MG Tab.EC PO SCH (08:19)
[2022-09-24] MEDS: Sodium Chloride 0.9% 1,000 ML IV SCH (11:27)
[2022-09-24] MEDS: Enoxaparin 40 MG/0.4 ML Syringe SUBCUT SCH (20:25)
[2022-09-25] MEDS: Sodium Chloride 0.9% 1,000 ML IV SCH ×2 (01:39→18:46)
[2022-09-25] MEDS: cefOXitin 1 GM Vial IVPUSH SCH ×4 (02:55→20:52)
[2022-09-25 06:50] LABS: BASOPHILS ABSOLUTE AUTO 0.1 x10-3/uL (0.0-0.1); BASOPHILS PERCENT AUTO 0.6 % (0.2-1.5); EOSINOPHILS ABSOLUTE AUTO 0.3 x10-3/uL (0.0-0.8); EOSINOPHILS PERCENT AUTO 4.1 % (0.6-8.1); HEMATOCRIT 33.8 % (34.2-48.2); HEMOGLOBIN 11.1 g/dL (11.4-15.5); LYMPHOCYTES PERCENT AUTO 12.2 % (18.4-52.1); MEAN CORPUSCULAR HEMOGLOBIN 29.8 pg (23.9-33.9); MEAN CORPUSCULAR HGB CONC 32.8 g/dL (31.9-34.8); MEAN CORPUSCULAR VOLUME 90.6 fL (76.7-100.5); MEAN PLATELET VOLUME 6.8 fL (7.1-12.4); MONOCYTES ABSOLUTE AUTO 0.9 x10-3/uL (0.3-1.0); NEUTROPHILS ABSOLUTE AUTO 6.2 x10-3/uL (1.5-6.3); NEUTROPHILS PERCENT AUTO 72.1 % (30.8-76.2); PLATELET COUNT,PLT 482 x10(3)uL (151-488); RED BLOOD CELL COUNT 3.73 x10(6)uL (3.60-5.20); RED CELL DISTRIBUTION WIDTH 14.6 % (12.3-16.5); WHITE BLOOD CELL COUNT,WBC 8.5 x10-3/uL (3.0-10.3)
[2022-09-25 06:56] LABS: BLOOD UREA NITROGEN,BUN 18 mg/dL (7-18); CALCIUM 8.6 mg/dL (8.6-10.2); CARBON DIOXIDE,CO2 38 mmol/L (21-32); CHLORIDE,CL 101 mmol/L (100-110); CREATININE 1.2 mg/dL (0.55-1.02); EST CRCL DRUG DOSING (CG) 45.26 mL/min; ESTIMATED GFR 49 mL/min (>60); GLUCOSE RANDOM 102 mg/dL (80-116); POTASSIUM,K 4.7 mmol/L (3.5-5.3); SODIUM,NA 141 mmol/L (135-145)
[2022-09-25] MEDS: levETIRAcetam 500 MG Tab PO SCH ×2 (06:58→18:38)
[2022-09-25] MEDS: Carvedilol 25 MG Tab PO SCH ×2 (09:03→17:08)
[2022-09-25] MEDS: metFORMIN 500 MG Tab.ER PO SCH (09:03)
[2022-09-25] MEDS: atorvaSTATin 40 MG Tab PO SCH (09:04)
[2022-09-25] MEDS: Escitalopram 10 MG Tab PO SCH (09:04)
[2022-09-25] MEDS: Losartan 100 MG Tab PO SCH (09:06)
[2022-09-25] MEDS: Aspirin 81 MG Tab.EC PO SCH (09:06)
[2022-09-25] MEDS: hydrALAZINE 10 MG Tab PO SCH ×2 (09:06→20:05)
[2022-09-25] MEDS ORDERED: Iopamidol 755 Mg/ML 100 ML Bottle IV SCH (11:00)
[2022-09-25] MEDS: Enoxaparin 40 MG/0.4 ML Syringe SUBCUT SCH (20:09)
[2022-09-26] MEDS: cefOXitin 1 GM Vial IVPUSH SCH ×3 (02:39→15:06)
[2022-09-26] MEDS: levETIRAcetam 500 MG Tab PO SCH ×2 (06:34→18:42)
[2022-09-26 06:41] LABS: BASOPHILS ABSOLUTE AUTO 0.1 x10-3/uL (0.0-0.1); BASOPHILS PERCENT AUTO 0.8 % (0.2-1.5); EOSINOPHILS ABSOLUTE AUTO 0.3 x10-3/uL (0.0-0.8); EOSINOPHILS PERCENT AUTO 4.1 % (0.6-8.1); HEMOGLOBIN 11.5 g/dL (11.4-15.5); LYMPHOCYTES ABSOLUTE AUTO 0.8 x10-3/uL (1.0-4.4); LYMPHOCYTES PERCENT AUTO 12.4 % (18.4-52.1); MEAN CORPUSCULAR HGB CONC 32.9 g/dL (31.9-34.8); MEAN CORPUSCULAR VOLUME 91.3 fL (76.7-100.5); MEAN PLATELET VOLUME 7.1 fL (7.1-12.4); MONOCYTES ABSOLUTE AUTO 0.7 x10-3/uL (0.3-1.0); MONOCYTES PERCENT AUTO 10.5 % (4.4-15.7); NEUTROPHILS ABSOLUTE AUTO 4.8 x10-3/uL (1.5-6.3); NEUTROPHILS PERCENT AUTO 72.2 % (30.8-76.2); PLATELET COUNT,PLT 465 x10(3)uL (151-488); RED BLOOD CELL COUNT 3.83 x10(6)uL (3.60-5.20); RED CELL DISTRIBUTION WIDTH 14.5 % (12.3-16.5); WHITE BLOOD CELL COUNT,WBC 6.6 x10-3/uL (3.0-10.3)
[2022-09-26 06:47] LABS: BLOOD UREA NITROGEN,BUN 14 mg/dL (7-18); BUN/CREATININE RATIO 12.7 (9-20); CALCIUM 8.6 mg/dL (8.6-10.2); CARBON DIOXIDE,CO2 36 mmol/L (21-32); CHLORIDE,CL 103 mmol/L (100-110); CREATININE 1.1 mg/dL (0.55-1.02); EST CRCL DRUG DOSING (CG) 49.38 mL/min; ESTIMATED GFR 55 mL/min (>60); GLUCOSE RANDOM 119 mg/dL (80-116); POTASSIUM,K 4.7 mmol/L (3.5-5.3); SODIUM,NA 141 mmol/L (135-145)
[2022-09-26] MEDS: hydrALAZINE 10 MG Tab PO SCH ×2 (09:26→20:12)
[2022-09-26] MEDS: Carvedilol 25 MG Tab PO SCH ×2 (09:26→18:18)
[2022-09-26] MEDS: Losartan 100 MG Tab PO SCH (09:27)
[2022-09-26] MEDS: Escitalopram 10 MG Tab PO SCH (09:27)
[2022-09-26] MEDS: atorvaSTATin 40 MG Tab PO SCH (09:27)
[2022-09-26] MEDS: Aspirin 81 MG Tab.EC PO SCH (09:27)
[2022-09-26] MEDS: Sodium Chloride 0.9% 10 ML Syringe FLUSH PRN ×2 (09:28→15:06)
[2022-09-26] MEDS: Enoxaparin 40 MG/0.4 ML Syringe SUBCUT SCH (20:09)
[2022-09-26] MEDS: Cefuroxime 250 MG Tab PO SCH (20:12)
[2022-09-26] MEDS: Clindamycin HCl 150 MG Cap PO SCH (20:12)
[2022-09-27] MEDS: Clindamycin HCl 150 MG Cap PO SCH ×2 (05:33→12:45)
[2022-09-27 06:26] LABS: BASOPHILS PERCENT AUTO 0.9 % (0.2-1.5); EOSINOPHILS ABSOLUTE AUTO 0.3 x10-3/uL (0.0-0.8); EOSINOPHILS PERCENT AUTO 5.3 % (0.6-8.1); HEMATOCRIT 34.7 % (34.2-48.2); HEMOGLOBIN 11.3 g/dL (11.4-15.5); LYMPHOCYTES ABSOLUTE AUTO 0.9 x10-3/uL (1.0-4.4); LYMPHOCYTES PERCENT AUTO 18.1 % (18.4-52.1); MEAN CORPUSCULAR HEMOGLOBIN 29.6 pg (23.9-33.9); MEAN CORPUSCULAR HGB CONC 32.7 g/dL (31.9-34.8); MEAN CORPUSCULAR VOLUME 90.5 fL (76.7-100.5); MONOCYTES ABSOLUTE AUTO 0.6 x10-3/uL (0.3-1.0); MONOCYTES PERCENT AUTO 11.9 % (4.4-15.7); NEUTROPHILS ABSOLUTE AUTO 3.2 x10-3/uL (1.5-6.3); NEUTROPHILS PERCENT AUTO 63.8 % (30.8-76.2); PLATELET COUNT,PLT 463 x10(3)uL (151-488); RED BLOOD CELL COUNT 3.83 x10(6)uL (3.60-5.20); RED CELL DISTRIBUTION WIDTH 14.6 % (12.3-16.5); WHITE BLOOD CELL COUNT,WBC 5.1 x10-3/uL (3.0-10.3)
[2022-09-27 06:43] LABS: BLOOD UREA NITROGEN,BUN 11 mg/dL (7-18); CALCIUM 8.8 mg/dL (8.6-10.2); CARBON DIOXIDE,CO2 34 mmol/L (21-32); CHLORIDE,CL 104 mmol/L (100-110); EST CRCL DRUG DOSING (CG) 54.32 mL/min; ESTIMATED GFR 61 mL/min (>60); GLUCOSE RANDOM 125 mg/dL (80-116); POTASSIUM,K 4.7 mmol/L (3.5-5.3); SODIUM,NA 142 mmol/L (135-145)
[2022-09-27] MEDS: levETIRAcetam 500 MG Tab PO SCH (07:18)
[2022-09-27] MEDS: Carvedilol 25 MG Tab PO SCH (08:33)
[2022-09-27] MEDS: Cefuroxime 250 MG Tab PO SCH (08:33)
[2022-09-27] MEDS: Aspirin 81 MG Tab.EC PO SCH (08:34)
[2022-09-27] MEDS: atorvaSTATin 40 MG Tab PO SCH (08:34)
[2022-09-27] MEDS: Losartan 100 MG Tab PO SCH (08:34)
[2022-09-27] MEDS: Escitalopram 10 MG Tab PO SCH (08:34)
[2022-09-27] MEDS: hydrALAZINE 10 MG Tab PO SCH (08:35)
== END 2022-09-27 15:15 | disposition home or self-care (01) | DRG 137 ==
LOC: FB.MS 11:14 → OBSVTOIN 09-20 11:14
PROVIDERS: ADMIT Family Medicine; ATTEND Family Medicine
DX: J69.0 Pneumonitis due to inhalation of food and vomit (principal); G51.4 Facial myokymia; Z86.73 Personal history of transient ischemic attack (TIA), and cerebral infarction without residual deficits; E66.9 Obesity, unspecified; E87.4 Mixed disorder of acid-base balance; E11.649 Type 2 diabetes mellitus with hypoglycemia without coma; R20.0 Anesthesia of skin; H54.7 Unspecified visual loss; E78.00 Pure hypercholesterolemia, unspecified; Z96.659 Presence of unspecified artificial knee joint; Z51.5 Encounter for palliative care; J96.01 Acute respiratory failure with hypoxia; J96.02 Acute respiratory failure with hypercapnia; I11.0 Hypertensive heart disease with heart failure; I50.31 Acute diastolic (congestive) heart failure; E83.42 Hypomagnesemia; N17.9 Acute kidney failure, unspecified; E86.0 Dehydration; Z79.4 Long term (current) use of insulin; Z88.0 Allergy status to penicillin; Z88.8 Allergy status to other drugs, medicaments and biological substances; Z79.82 Long term (current) use of aspirin; Z79.899 Other long term (current) drug therapy; Z86.16 Personal history of COVID-19
CPT/HCPCS: 36415; 70450; 71046; 71260; 80048; 80053; 80177; 81001; 82140; 82803; 82947; 83605; 83735; 83880; 84484; 85025; 86140; 87040; 93005; 94150; 94660; 96365; 96372; 96375; A9270-GY; C8929; G0378; J0456; J0694; J0696; J1650; J1940; J2060; J3475; J3490; J7030; J7050; J7620; Q0162; Q9967